=== PATIENT | female | born 1980 | race Asian ===

== ENCOUNTER → 2017-07-20 06:13 | Day surgery (SDC) | payer BC ==
[~2017-07-20 06:13] MED LIST: Acetic Acid 0.25%* 250 ML BTL ONE; Buffered Lidocaine 0.9% SYRIN* 5 ML/SYR SYRINGE INTRADERM ONE; Dexamethasone IV* 4 MG/ML 1 ML (4 MG) IV SLOW PU ONE; Dexamethasone IV* 4 MG/ML 1 ML (4 MG) ONE; Famotidine IV* 10 MG/ML 2 ML (20 mg) IV ONE; Famotidine IV* 10 MG/ML 2 ML (20 mg) ONE; Ferric Subsulfate* 8 ML BTL ONE; Iodine Strong (LUGOL'S)* 14 ML BTL ONE; Lidocaine 1% INJ* 10 MG/ML 30 ML SDV ONE; Midazolam* 1 MG/ML 2 ML VIAL (2 MG) ONE; Naloxone* 0.4 MG/ML 1 ML VIAL IV PRN; Propofol* 10 MG/ML 20 ML BTL IV PUSH ONE; VASOPRESSIN 20 UNITS/ML 1 ML VIAL ONE; ceFAZolin 2 GM PREMIX (*) 2 GM/50 ML BAG IVPB ONE; fentaNYL* 50 MCG/ML 2 ML VIAL (100 MCG VIAL) ONE; oxyCODONE/Acetamin 5/325 MG* TAB PO PRN
[2017-07-20 09:51] VITALS: BP 113/77
--- NOTE | 2017-07-20 17:55 | OP ---
DATE OF OPERATION: 07/20/17 - [facility] DATE OF : 84 SURGEON: Joe Peters MD ANESTHESIOLOGIST: Timur Bar MD ANESTHESIA: Sedation and local. PRE-OP DIAGNOSIS: High-grade cervical dysplasia. POST-OP DIAGNOSIS: High-grade cervical dysplasia. OPERATIVE PROCEDURE: Colposcopy, Greenwood cone biopsy size medium, endocervical curettage. FINDINGS: Midline cervix. On colposcopy, there were acetowhite changes between 9 and 12 o'clock and at 6 o'clock. No abnormal vessels were seen. No vaginal lesions. No perineal lesions. COMPLICATIONS: None. COUNTS: Sponge count correct x2. CONDITION: The patient tolerated the procedure well and was brought to the recovery room awake and in stable condition. DESCRIPTION OF PROCEDURE: The patient was brought to the operating room. When anesthesia was found to be adequate, the patient was draped in the usual sterile fashion in the dorsal lithotomy position. Vaginal prep was not done because the colposcopy was planned. Time-out was performed. A coated speculum was placed in the vagina. Colposcopy was performed using vinegar and Lugol's solution with the above findings noted. A size medium Greenwood cone biopsy loop was used and the specimen was removed in 1 piece with the cut at 12 o'clock. Endocervical curettage was then performed and that specimen was also sent to Pathology. Excellent hemostasis was achieved with the application of Monsel solution. The speculum was removed from the vagina. The patient was brought to the recovery room awake and in stable condition. [id number]/[facility] #: [id number] MTDD
== END | disposition home or self-care (01) ==
LOC: OR 06:13
PROVIDERS: ATTEND Obstetrics & Gynecology
DX: D06.9 Carcinoma in situ of cervix, unspecified (principal); R87.810 Cervical high risk human papillomavirus (HPV) DNA test positive
CPT/HCPCS: 81025; 88305; 88307; A9270-GY; J0690; J1100; J2250; J2704; J3010

== ENCOUNTER 2018-05-09 04:34 | Inpatient (IN) | payer OTHER ==
[2018-05-09 05:10] LABS: Hematocrit 42 % (35-47); Hemoglobin 14.5 g/dl (12.0-16.0); Mean Corpuscular HGB Conc 34 g/dl (31-36); Mean Corpuscular Hemoglobin 31 pg (27-31); Mean Corpuscular Volume 90 fL (80-97); Mean Platelet Volume 9.4 fL (7.4-10.4); Platelet Count 150 10^3/ul (150-450); Red Blood Count 4.71 10^6/ul (4.00-5.40); Red Cell Distribution Width 13 % (10.5-15); White Blood Count 10.5 10^3/ul (3.5-10.8)
[2018-05-09] MEDS ORDERED: Oxytocin in LR* 20 UNITS/1,000 ML BAG IVPB ONE (07:31)
[2018-05-09] MEDS ORDERED: fentaNYL* 50 MCG/ML 2 ML VIAL (100 MCG VIAL) ONE (08:06)
[2018-05-09] MEDS ORDERED: Witch Hazel PAD* JAR TOPICAL PRN (08:35)
[2018-05-09] MEDS ORDERED: Misoprostol TAB* 200 MCG PR ONE (08:35)
[2018-05-09] MEDS ORDERED: Glycerin ADULT SUPP PR PRN (08:35)
[2018-05-09] MEDS ORDERED: fentaNYL* 50 MCG/ML 2 ML VIAL (100 MCG VIAL) IV SLOW PU ONE (08:43)
[2018-05-09] MEDS ORDERED: Acetaminophen TAB* 325 MG ONE (08:49)
--- NOTE | 2018-05-09 08:51 | HP ---
General Information - Reason for Visit Pt awoke at 0230 with strong ctx - General Information Maternal Age: 38 Grav: 1 Para: 0 SAB: 0 IEA: 0 Estimated Due Date: 05/11/18 Determined By: LMP Maternal Blood Type and Rh: B Positive - Results this Serology/RPR Result: Non-Reactive Rubella Result: Immune HBsAg Result: Negative HIV Result: Negative GBS Culture Result: Negative Past Medical History Delivery History: See Records - primigravida Pertinent Past Medical History: Non-Contributory Pertinent Past Surgical History: See Records - Cone biopsy- AURELIO 3 clear margins Pertinent Family History: Non-Contributory - Antepartal Records Antepartal Records: Reviewed, Complicated by: - GDM- diet controlled Review of Systems Constitutional: Uncomfortable CV Complaint: No Respiratory: Shortness of Breath: No Gastrointestinal: No Nausea/Vomiting, Normal Bowel Movement Genitourinary: No Dysuria, No Bleeding, No Leaking Fluid Musculoskeletal: No Epigastric Pain, Contractions Neurological: No Headache, No Visual Changes Movement: Normal Exam Allergies/Adverse Reactions: Allergies aspirin Allergy (Verified 05/09/18 05:10) Rash ibuprofen Allergy (Verified 05/09/18 05:10) Rash T-97.3, P-109, R-22, BP- 120/82 Lab Values - Entire Visit: Laboratory Tests 05/09/18 05/09/18 04:59 04:59 WBC 10.5 RBC 4.71 Hgb 14.5 Hct 42 MCV 90 MCH 31 MCHC 34 RDW 13 Plt Count 150 MPV 9.4 Blood Type B Positive Antibody Screen Negative - Measurements Height: 5 ft 4 in Weight: 59.874 kg Weight in lbs: 132.921174 Body Mass Index (BMI): 22.6 Pre- Weight: 55.338 kg Weight Gained This : 10 lbs and 0 ozs - Exam Breast: Breast Exam Deferred CVA: No CVA Tenderness Heart: Normal Rhythm/Heart Sounds HEENT: No Significant Findings Lungs: Clear Bilaterally Rectal: Rectal Exam Deferred Reflexes: DTR 2+ Thyroid: No Thyromegaly - Abdominal Exam Abdomen Exam: Non-Tender, Fundal Height Consistent with Dates - Ultrasound/Biophysical Profile Ultrasound Status: Not Done Targeted Exam Findings See L&D Outpatient Visit Provider Note for Findings: N/A Cervical Exam: 9cm Effacement: 100% Station: +1 Presenting Part: Vertex Membrane Status: Bulging Bleeding/Discharge: None - Exam above was on arrival EFM Findings - External Monitor Findings Baseline Heart Rate: 145 External Monitor Findings: No Pattern of Variable or Late Decelerations, Variability Moderate, Baseline Stable, Accelerations Absent Contractions: Regular, Strong, 45-90 Seconds Contraction Frequency: 2-3 minutes Assessment/Plan - Assessment 38 year old at 39 5/7 weeks gestation in active labor, no evidence of acidemia - Obstetrical Risk Factors Obstetrical Risk Factors: Gestational Diabetes - Plan Plan: Admit - Anticipate Vaginal Delivery - Date/Time of Admission Date of Admission: 05/09/18 Time of Admission: 04:51
[2018-05-09] MEDS ORDERED: Oxytocin in LR* 20 UNITS/1,000 ML BAG IVPB SCH (09:00)
[2018-05-09] MEDS: Docusate CAP* 100 MG PO SCH ×3 (09:06→20:20)
--- NOTE | 2018-05-09 09:19 | PROCNOTE ---
[facility]: Delivery Note - Perineum Perineal Injury: Perineal Laceration, 3rd Degree Extension Perineal Injury Comment: Partial 3rd degree Perineal Repair: Dr. Yuen - Events Delivery Events of Note: Pitocin During Labor, Post- Bleeding - Meds Given - Risk for Falls Delivered OB Patient- Risk for Falls: Heavy Bleeding Fall Risk: Patient is at High Risk for Falls - Additional Delivery Notes Additional Delivery Notes: Pt awoke at 0230 with contractions. When she arrived on the unit at 0450 she was 9cm with a bulging bag. Pt requested epidural but soon progressed to full dilation. AROM performed revealing meconium stained fluid. Pt soon felt urge to push. Pt coached on pushing and pushed with good effort. descent occurred slowly but steadily. Perineum became edematous with pushing. Pt eventually progressed to . Head delivered OA to KUNAL w/ nuchal cord. Infant's shoulders delivered easily with next push. Nuchal cord reduced easily and placed on maternal abdomen with lusty cry, good tone, FHR >100. After pulsation ceased, cord clamped x2 and cut by infant's father. Placenta soon followed with gentle cord traction, chang side with trailing membranes, teased out, appear intact. Pt's fundus initially firm, but then became boggy with excess bleeding. Pitocin increased to 250 cc/ hr, and Cytotec 800 mcg given NE. Bleeding ceased, and fundas remained firm. Examination of perineum revealed partial third degree laceration. Dr. Yuen called to bedside to evaluate and perform repair. Repair completed by Dr. Yuen with good hemostasis and tissue approximation. and mother stable at the time of this note. Anticipate normal course.
[2018-05-09] MEDS: Dibucaine 1% 28.35 GM TUBE PR PRN (13:38)
[2018-05-09] MEDS: Acetaminophen TAB* 325 MG PO PRN (18:01)
[2018-05-10] MEDS: Acetaminophen TAB* 325 MG PO PRN ×4 (03:11→18:43)
[2018-05-10 08:15] LABS: ABS Basophils 0 10^3/ul (0-0.2); ABS Eosinophils 0 10^3/ul (0-0.6); ABS Lymphocytes 1.7 10^3/ul (1.0-4.8); ABS Monocytes 0.5 10^3/ul (0-0.8); ABS Neutrophils 8.4 10^3/ul (1.5-7.7); ABS Nucleated RBC 0 10^3/ul; Eosinophil % 0.2 % (0-6); Hematocrit 25 % (35-47); Lymphocyte % 15.8 % (25-47); Mean Corpuscular HGB Conc 36 g/dl (31-36); Mean Corpuscular Hemoglobin 32 pg (27-31); Mean Corpuscular Volume 88 fL (80-97); Mean Platelet Volume 9.3 fL (7.4-10.4); Nucleated Red Blood Cells % 0; Platelet Count 135 10^3/ul (150-450); Red Blood Count 2.84 10^6/ul (4.00-5.40); Red Cell Distribution Width 14 % (10.5-15); White Blood Count 10.6 10^3/ul (3.5-10.8)
[2018-05-10] MEDS: Docusate CAP* 100 MG PO SCH ×3 (08:35→21:01)
[2018-05-10] MEDS: Ferrous Gluconate TAB* 324 MG TAB PO SCH ×2 (08:35→21:01)
[2018-05-11] MEDS: Acetaminophen TAB* 325 MG PO PRN ×2 (05:31→12:07)
[2018-05-11] MEDS: Dibucaine 1% 28.35 GM TUBE PR PRN (05:37)
--- NOTE | 2018-05-11 08:18 | PTEDU ---
Patient Name: JR BOOTH JR BOOTH selected video: Never Ever Shake a Baby to view on 05/11/2018 at 8:17:56 AM [id number]
--- NOTE | 2018-05-11 08:27 | PTEDU ---
Patient Name: JR BOOTH JR BOOTH selected video: Follow Me Mum: [facility] to Successful to view on 05/11/2018 at 8:27:10 [id number]
[2018-05-11 08:28] VITALS: BP 102/62
[2018-05-11] MEDS: Ferrous Gluconate TAB* 324 MG TAB PO SCH (08:56)
[2018-05-11] MEDS: Docusate CAP* 100 MG PO SCH ×2 (08:56→13:46)
== END 2018-05-11 14:46 | disposition home or self-care (01) | DRG 768 ==
LOC: MCHOBOUT 04:34 → MCHOB 04:51
PROVIDERS: ADMIT Midwife; ATTEND Midwife
PROC: 10907ZC Drainage of Amniotic Fluid, Therapeutic from Products of Conception, Via Natural or Artificial Opening (ICD-10-PCS; principal; 2018-05-09)
PROC: 0DQR0ZZ Repair Anal Sphincter, Open Approach (ICD-10-PCS; 2018-05-09)
PROC: 10E0XZZ Delivery of Products of Conception, External Approach (ICD-10-PCS; 2018-05-09)
PROC: 4A1HXCZ Monitoring of Products of Conception, Cardiac Rate, External Approach (ICD-10-PCS; 2018-05-09)
DX: O24.420 Gestational diabetes mellitus in childbirth, diet controlled (principal); Z37.0 Single live birth; O22.43 Hemorrhoids in pregnancy, third trimester; O72.1 Other immediate postpartum hemorrhage; O70.20 Third degree perineal laceration during delivery, unspecified; O69.81X0 Labor and delivery complicated by cord around neck, without compression, not applicable or unspecified; O77.0 Labor and delivery complicated by meconium in amniotic fluid; O90.81 Anemia of the puerperium; Z3A.39 39 weeks gestation of pregnancy; Z88.6 Allergy status to analgesic agent
CPT/HCPCS: 36415; 85025; 85027; 86850; 86900; 86901; A9270-GY; J3010